=== PATIENT | female | born 1940 | race Caucasian/White ===

== ENCOUNTER 2021-05-22 16:06 | Observation (INO) | payer MEDICARE, OTHER ==
[~2021-05-22] VITALS: Ht 177.8 cm; Wt 93.3 kg
[2021-05-22] MEDS ORDERED: ELIQUIS5 MG PO (16:15)
--- NOTE | 2021-05-22 20:26 | NUR ---
PT TO ROOM 120 VIA STRETCHER FROM ED AT 1935. UP TO BR TO VOID. PT REFUSING ASSIST FROM STAFF. SBA DUE TO BEING SLIGHTLY UNSTEADY. PT ALERT AND ORIENTED X 3. NOTED TO BE FORGETFUL WITH REPEATED QUESTIONS. ORDERS RECEIVED. IVF INFUSING ORDERED. IV ABX INFUSING WNL. ASSESSMENT COMPLETE. RLE NOTED TO BE RED AND WARM TO TOUCH. PT DENIES PAIN OR NAUSEA. AFEBRILE UPON ADMISSION. PT ORIENTED TO ROOM AND NURSE CALL LIGHT, STATES "I WON'T CALL FOR ASSISTANCE IF I NEED TO GO TO THE BATHROOM". EDUCATION PROVIDED REGARDING SAFETY. PT NOT RECEPTIVE. BED ALARM PLACED. PT EMOTIONAL AT TIMES, DOES NOT UNDERSTAND WHY SHE IS HERE. ATTEMPTED TO PROVIDE COMFORT AND REINFORCE EDUCATION. PT NOT RECEPTIVE. SANDWICH BOX AND DRINKS PROVIDED. NO FURTHER QUESTIONS OR CONCERNS AT THIS TIME. CALL LIGHT IN REACH. PT IN VIEW OF NURSES STATION.
--- NOTE | 2021-05-22 21:00 | NUR ---
BED ALARM SOUNDING. PT STATES "I NEED TO GO TO THE [facility] BATHROOM". PT PULLING ON IV SHE DOES NOT WANT TO TAKE IV POLE INTO BR WITH HER. PT ABLE TO BE REDIRECTED. SBA TO BR TO VOID. GAIT WEAK BUT PT CONTINUES TO REFUSE MUCH STAFF ASSIST AND REFUSED WALKER/CANE WHEN OFFERED. REPEATS "I DON'T WANT NO HELP". WHEN THIS RN DOES ASSIST PT HOLLERS "THIS IS BULLSHIT". ATTEMPTED TO PROVIDED EDUCATION REGARDING SAFETY. PT NOT RECEPTIVE. PT CONFUSED ABOUT PLACE AND EVENT. ATTEMPTED TO REORIENT PT UNSUCCESSFUL. PT BACK TO BED. BED ALARM FOR SAFETY. IN VIEW OF NURSES STATION.
--- NOTE | 2021-05-23 00:25 | NUR ---
PT RESTING IN BED WITH EYES CLOSED, NAD.
--- NOTE | 2021-05-23 01:43 | NUR ---
VS AND I&O COMPLETE. PT PLEASANTLY CONFUSED AT THIS TIME. IV ABX INFUSING PER ORDER. PT DENIES PAIN OR NAUSEA. WARM BLANKET PROVIDED. BED ALARM FOR SAFETY. CALL LIGHT IN REACH.
--- NOTE | 2021-05-23 02:30 | NUR ---
PATIENT USED THE CALL BUTTON. SBA TO THE BATHROOM. CHANGED GOWN AND CHUX AND PUT ON PULL UPS. PATIENT WAS WET WITH URINE. PATIENT WANTING TO BE UP IN THE CHAIR. CHAIR ALARM ON. COFFEE PROVIDED PER PATIENT'S REQUEST.
--- NOTE | 2021-05-23 03:13 | NUR ---
CHAIR ALARM SOUNDING. PT WANTING TO GET UP AND WALK TO THE DOOR. REMAINS CONFUSED TO WHY SHE IS ADMITTED. SHOUTING AT STAFF. ATTEMPTED TO AMB WITH PT FOR SAFETY. PT REFUSED. STATES "I'LL JUST SIT HERE". LEGS ELEVATED. CHAIR ALARM ON. PT IN VIEW OF NURSES STATION.
--- NOTE | 2021-05-23 03:44 | NUR ---
CHAIR ALARMING. PATIENT GOT UP. PATIENT IS BACK IN BED NOW. BED ALARM ON FOR SAFETY.
--- NOTE | 2021-05-23 05:36 | NUR ---
PT RESTING IN BED WITH EYES CLOSED LYING ON LEFT SIDE. RESPIRATIONS EVEN. IVF INFUSING. BED ALARM FOR SAFETY. CALL LIGHT IN REACH.
--- NOTE | 2021-05-23 06:10 | NUR ---
SCHEDULED MEDS ADMINISTERED PER EMAR. VS AND I&O COMPLETE. PT REMAINS CONFUSED, THOUGHT SHE WAS AT HOME. DENIES PAIN OR NAUSEA. NO FURTHER NEEDS. BED ALARM FOR SAFETY. CALL LIGHT IN REACH.
--- NOTE | 2021-05-23 07:22 | EKG ---
[facility] [address] [place], [place] [address] Signed Atrial fibrillation Low voltage QRS Cannot rule out Anterior infarct , age undetermined Abnormal ECG No previous ECGs available Confirmed by CHELSIE CUNHA MD ([id number]) on 05/23/2021 7:21:50 AM Electronically Signed By: CHELSIE CUNHA MD 05/23/21721 PATIENT NAME: IRAJ RANGEL Electrocardiogram DATE OF : 36 PHYSICIAN: CHELSIE CUNHA MD REPORT #: [id number] REPORT IS CONFIDENTIAL AND NOT TO BE RELEASED WITHOUT AUTHORIZATION
--- NOTE | 2021-05-23 07:22 | NUR ---
Patient sitting up in chair at this time, alert and oriented x3. Introduced my selt and provided patient with her call light. Patient denies needs at this time. Encouraged patient to call staff if she has needs. Close to RN station.
--- NOTE | 2021-05-23 08:52 | NUR ---
PATIENT RESTING IN CHAIR WITH BREAKFAST. LINENS CHANGED DURING THIS TIME WELL A NEW GOWN PROVIDED. WARM WASHCLOTH PROVIDED FOR FACE AND HANDS.
[2021-05-23] MEDS ORDERED: CLINDAMYCIN HC300 MG PO (09:35)
--- NOTE | 2021-05-23 09:45 | NUR ---
PATIENT RESTING IN CHAIR WITH DAUGHTER IN ROOM. VITALS AND I&O'S CHARTED. DOCTOR VISIT WITH PATIENT AND PATIENT'S DAUGHTER. CALL LIGHT IN REACH AND NO FURTHER NEEDS AT THIS TIME.
--- NOTE | 2021-05-23 10:20 | NUR ---
MED REC COMPLETED
--- NOTE | 2021-05-23 10:24 | NUR ---
IN TO SEE ASSESS PATIENT. DR. CUNHA AND PATIENT DAUGHTER NICOLE AT THE BEDSIDE. PATIENT SITTING UP IN THE CHAIR PARTICIPATING WITH ONGOING CONVERSATION. PER DR. CUNHA PATIENT IS OKAY TO DISCHARGE HOME TODAY ON PO ABX. THIS HAS BEEN DISCUSSED WITH THE PATIENT AND HER DAUGHTER NICOLE, WHO ARE AGREEABLE. PATIENT STATES "I WANT TO GO SMOKE." CASE MANAGEMENT ASSESSMENT COMPLTED WITH PATIENT DAUGHTER NICOLE. NICOLE STATES SHE WILL LEAVE TO GATHER THE PATIENT CLOTHING AND RETURN TO PICK PATIENT UP. UPON LEAVING THE PATIENTS ROOM NICOLE INQUIRES ABOUT ASSISTED LIVING PLACEMENT. NICOLE STATES THAT SHE HAS CONTACTED A LOCAL FACILITY, BUT THEY DO NOT HAVE BED AVAILABILITY UNTIL JUNE. EXPLAINED TO NICOLE THAT THIS RN IS WILL TO ASSIST BY PROVIDING INFORMATION ABOUT LOCAL FACILITIES. I EXPLAINED THAT AT THIS TIME THE PATIENT WOULD LIKELY NOT QUALIFY FOR SNIF PLACEMENT AND ASSISTED LIVING WOULD NEED TO BE PAID OUT OF POCKET BY THE PATIENT. NICOLE STATES SHE UNDERSTANDS, BUT WAS WONDERING IF WE COULD PLACE THE PATIENT TO AN ASSISTED FACILITY FROM THE HOSPITAL. THIS RN EXPLAINED THAT UNFORTUNATLY PATIENT DOES NOT QUALIFY FOR FURTHER INPATIENT STAY, SO THE REMANDER OF HER STAY WOULD LIKELY BE BILLED TO HER IF SHE WERE TO STAY AWAITING PLACEMENT. NICOLE UNDERSTANDS AND STATES SHE WILL CONTINUE TO SEARCH FOR PATIENT PLACEMENT FOLLOWING DISCHARGE.
== END 2021-05-23 10:40 | disposition home or self-care (01) ==
LOC: ED 16:06 → MS 16:08
PROVIDERS: ADMIT Internal Medicine; ATTEND Internal Medicine
DX: L03.115 Cellulitis of right lower limb (principal); I48.20 Chronic atrial fibrillation, unspecified; R91.8 Other nonspecific abnormal finding of lung field; F03.90 Unspecified dementia, unspecified severity, without behavioral disturbance, psychotic disturbance, mood disturbance, and anxiety; F17.200 Nicotine dependence, unspecified, uncomplicated; I95.9 Hypotension, unspecified; Z20.822 Contact with and (suspected) exposure to COVID-19; Z91.81 History of falling; Z79.01 Long term (current) use of anticoagulants
CPT/HCPCS: 51701; 71045; 80048; 80053; 81001; 83605; 84484; 85025; 93005; 93010; 96366; 96367; 97161; 99285-25; C9803; G0378; J0456; J0696; J7030; J7060; U0003